=== PATIENT | female | born 1980 | race Caucasian/White ===

== ENCOUNTER 2019-01-20 00:40 | Emergency (ER) | payer BC, MEDICAID ==
[2019-01-20] MEDS ORDERED: Sodium Chloride 0.9% 1,000 ML IV SCH (02:15)
[2019-01-20] MEDS ORDERED: Acetaminophen 325 MG Tab PO ONE (02:16)
[2019-01-20] MEDS ORDERED: cefTRIAXone 1 GM in Sodium Chloride 0.9% 50 ML IV ONE ×2 (02:16→16:21)
--- NOTE | 2019-01-20 02:22 | EDM.PDOC ---
ED HPI GENERAL MEDICAL PROBLEM - General Chief Complaint: Fever Stated Complaint: FEVER,CHILLS,BODY ACHES Time Seen by Provider: 01/20/19 02:17 Source of Information: Reports: Patient History Limitations: Reports: No Limitations - History of Present Illness INITIAL COMMENTS - FREE TEXT/NARRATIVE: pt delivered 6 days ago. She had no complications . She did not end up with stitches, She was doing well and now she has a fever and she hs increased lower abdomanal pain. Onset: Today, Gradual, Other ( last 36 hours pt has had increased pain. ) Duration: Hour(s): Location: Reports: Abdomen, Other ( vag discharge is foul. 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: - Past Surgical History GI Surgical History: Reports: Cholecystectomy Social & Family History - Tobacco Use Smoking Status *Q: Never Smoker - Recreational Drug Use Recreational Drug Use: No ED ROS GENERAL - Review of Systems Review Of Systems: See Below Constitutional: Reports: Fever, Chills, Malaise HEENT: Reports: No Symptoms Respiratory: Reports: No Symptoms Cardiovascular: Reports: No Symptoms Endocrine: Reports: No Symptoms GI/Abdominal: Reports: Abdominal Pain : Reports: No Symptoms Musculoskeletal: Reports: No Symptoms Skin: Reports: No Symptoms Neurological: Reports: No Symptoms ED EXAM, SEPSIS - Physical Exam Exam: See Below Text/Narrative:: pt arrived with increased lower abdomanal pain. She has no dysuria. Exam Limited By: No Limitations General Appearance: Alert, Moderate Distress, Severe Distress Ears: Normal TMs Nose: Normal Inspection Throat/Mouth: Normal Inspection Head: Atraumatic Neck: Normal Inspection Respiratory/Chest: No Respiratory Distress Cardiovascular: Regular Rate, Rhythm GI/Abdominal Exam: Tender, Other (pt has tenderness in the lower abdoman. ) (Female) Exam: Deferred, Other (pelvic exam was done which shos alot of tenderness when the cervix is moved. The discharge is bloody but not particulaly foul. ) Rectal (Female) Exam: Deferred Back: Normal Inspection Extremities: Normal Inspection Neurological: Alert, Oriented, Normal Cognition Psychiatric: Normal Affect Course - Vital Signs Last Recorded V/S: Last Vital Signs Temp 37.7 C 01/20/19 01:38 Pulse 110 H 01/20/19 01:38 Resp 16 01/20/19 01:38 BP 154/84 H 01/20/19 01:42 Pulse Ox 96 01/20/19 01:38 - Orders/Labs/Meds Orders: Active Orders 24 hr Category Date Time Status CULTURE GENITAL [RM] Stat Lab 01/20/19 02:18 Ordered Sodium Chloride 0.9% [Normal Saline] 1,000 ml Med 01/20/19 02:15 Active IV ASDIRECTED cefTRIAXone [Rocephin] 1 gm Med 01/20/19 02:16 Active Sodium Chloride 0.9% [Normal Saline] 50 ml IV ONETIME Medication Orders Sodium Chloride (Normal Saline) 1,000 mls @ 999 mls/hr IV ASDIRECTED KASSIDY Ceftriaxone Sodium 1 gm/ (Sodium Chloride) 50 mls @ 100 mls/hr IV ONETIME ONE Stop: 01/20/19 02:45 Labs: Laboratory Tests 01/20/19 01/20/19 01/20/19 Range/Units 01:40 01:40 02:00 WBC 13.2 H (4.5-11.0) K/uL RBC 4.29 (3.30-5.50) M/uL Hgb 11.7 L (12.0-15.0) g/dL Hct 35.7 L (36.0-48.0) % MCV 83 (80-98) fL MCH 27 (27-31) pg MCHC 33 (32-36) % Plt Count 245 (150-400) K/uL Neut % (Auto) 85 H (36-66) % Lymph % (Auto) 8 L (24-44) % Borden % (Auto) 6 (2-6) % Eos % (Auto) 1 L (2-4) % Baso % (Auto) 0 (0-1) % Sodium 140 (140-148) mmol/L Potassium 4.0 (3.6-5.2) mmol/L Chloride 105 (100-108) mmol/L Carbon Dioxide 23 (21-32) mmol/L Anion Gap 12.2 (5.0-14.0) mmol/L BUN 14 (7-18) mg/dL Creatinine 0.9 (0.6-1.0) mg/dL Est Cr Clr Drug Dosing 76.26 mL/min Estimated GFR (MDRD) > 60 (>60) Glucose 117 H (74-106) mg/dL Calcium 8.8 (8.5-10.1) mg/dL Total Bilirubin 0.5 (0.2-1.0) mg/dL AST 19 (15-37) U/L ALT 34 (12-78) U/L Alkaline Phosphatase 109 (46-116) U/L Total Protein 6.8 (6.4-8.2) g/dL Albumin 2.7 L (3.4-5.0) g/dL Globulin 4.1 H (2.3-3.5) g/dL Albumin/Globulin Ratio 0.7 L (1.2-2.2) Urine Color Yellow (YELLOW) Urine Appearance Cloudy A (CLEAR) Urine pH 6.0 (5.0-8.0) Ur Specific Solen 1.020 (1.008-1.030) Urine Protein 30 H (NEGATIVE) mg/dL Urine Glucose (UA) Normal (NEGATIVE) mg/dL Urine Ketones Negative (NEGATIVE) mg/dL Urine Occult Blood Large H (NEGATIVE) Urine Nitrite Negative (NEGATIVE) Urine Bilirubin Negative (NEGATIVE) Urine Urobilinogen 0.2 (0.2-1.0) EU/dL Ur Leukocyte Esterase Small H (NEGATIVE) Urine RBC Packed H (0-5) Urine WBC 5-10 H (0-5) Ur Epithelial Cells Few Amorphous Sediment Not seen Urine Bacteria Few Urine Mucus Few Meds: Medications Generic Name Dose Route Start Last Admin Trade Name Freq PRN Reason Stop Dose Admin Sodium Chloride 1,000 mls @ 999 mls/hr 01/20/19 02:15 Normal Saline IV ASDIRECTED KASSIDY Ceftriaxone Sodium 1 gm/ 50 mls @ 100 mls/hr 01/20/19 02:16 Sodium Chloride IV 01/20/19 02:45 ONETIME ONE Discontinued Medications Generic Name Dose Route Start Last Admin Trade Name Freq PRN Reason Stop Dose Admin Acetaminophen 650 mg 01/20/19 02:16 Tylenol PO 01/20/19 02:17 NOW ONE - Re-Assessments/Exams Free Text/Narrative Re-Assessment/Exam: 01/20/19 02:26 pt has a neg looking urine. Her wbc is mildly elevated. Rocephen 1 gm was given to the pt and she will return tomorrow for rocehen. Departure - Departure Time of Disposition: : Disposition: Home, Self-Care 01 Condition: Fair Clinical Impression: Pelvic infection - Discharge Information Referrals: PCP,None [Primary Care Provider] - Forms: ED Department Discharge Care Plan Goals: rtc tomorrow for iv rocephen, start keflex 500mg tid tomorrow. tylenol and motrin for fever. - My Orders Last 24 Hours: My Active Orders 01/20/19 02:15 Sodium Chloride 0.9% [Normal Saline] 1,000 ml IV ASDIRECTED 01/20/19 02:16 cefTRIAXone [Rocephin] 1 gm Sodium Chloride 0.9% [Normal Saline] 50 ml IV ONETIME 01/20/19 02:18 CULTURE GENITAL [RM] Stat - Assessment/Plan Last 24 Hours: My Active Orders 01/20/19 02:15 Sodium Chloride 0.9% [Normal Saline] 1,000 ml IV ASDIRECTED 01/20/19 02:16 cefTRIAXone [Rocephin] 1 gm Sodium Chloride 0.9% [Normal Saline] 50 ml IV ONETIME 01/20/19 02:18 CULTURE GENITAL [RM] Stat
== END 2019-01-20 04:30 | disposition home or self-care (01) ==
LOC: JP.ED 00:40 → JP.IVTHER 00:44 → JP.ED 01:00 → EDSTATUS 08:12 → JP.IVTHER 15:22 → JP.ED 16:15
DX: O86.00 Infection of obstetric surgical wound, unspecified (principal); Z90.49 Acquired absence of other specified parts of digestive tract; Z88.0 Allergy status to penicillin
CPT/HCPCS: 36415; 80053; 81001; 85025; 87070; 99283; A9270; J0696; J7030; J7050; 96361; 96365

== ENCOUNTER 2023-05-31 09:56 | Observation (INO) | payer BC, MEDICAID ==
[2023-05-31] MEDS ORDERED: Sodium Chloride 0.9% 1,000 ML IV SCH ×2 (10:30→12:30)
[2023-05-31 10:43] LABS: APPEARANCE,URINE CLOUDY (CLEAR); BILIRUBIN,URINE NEGATIVE (NEGATIVE); COLOR,URINE YELLOW (YELLOW); GLUCOSE,URINE NEGATIVE (NEGATIVE); KETONES,URINE NEGATIVE (NEGATIVE); LEUKOCYTE ESTERASE,URINE NEGATIVE (NEGATIVE); NITRITE,URINE NEGATIVE (NEGATIVE); OCCULT BLOOD,URINE NEGATIVE (NEGATIVE); PROTEIN,URINE TRACE mg/dL (NEGATIVE)
[2023-05-31 10:48] LABS: AMORPHOUS SEDIMENT,URINE NOT SEEN; BACTERIA,URINE MODERATE; EPITHELIAL CELLS,URINE MODERATE; MUCUS,URINE FEW; RBC,URINE 0-5 (0-5); WBC,URINE 0-5 (0-5)
[2023-05-31 10:53] LABS: ALANINE AMINOTRANSFERASE,ALT 20 U/L (12-78); ALBUMIN 3.7 g/dL (3.4-5.0); ALKALINE PHOSPHATASE 52 U/L (46-116); ANION GAP 11.5 mmol/L (5.0-14.0); ASPARTATE AMNIOTRANSFERASE,AST 12 U/L (15-37); BILIRUBIN TOTAL 1.1 mg/dL (0.2-1.0); BLOOD UREA NITROGEN,BUN 12 mg/dL (7-18); CALCIUM 8.4 mg/dL (8.5-10.1); CARBON DIOXIDE,CO2 27 mmol/L (21-32); CHLORIDE,CL 104 mmol/L (100-108); CREATININE 0.8 mg/dL (0.6-1.0); EST CRCL DRUG DOSING (CG) 82.43 mL/min; ESTIMATED GFR 94 mL/min (>60); GLUCOSE RANDOM 113 mg/dL (74-106); POTASSIUM,K 3.5 mmol/L (3.6-5.2); PROTEIN TOTAL,TP 7.5 g/dL (6.4-8.2); SODIUM,NA 139 mmol/L (140-148)
[2023-05-31 11:01] LABS: BASOPHILS ABSOLUTE AUTO 0.03 K/uL (0.00-0.10); BASOPHILS PERCENT AUTO 0.2 % (0.1-1.3); EOSINOPHILS ABSOLUTE AUTO 0.04 K/uL (0.00-0.40); EOSINOPHILS PERCENT AUTO 0.3 % (0.0-5.4); HEMATOCRIT 37.3 % (34.3-46.0); HEMOGLOBIN 12.9 g/dL (11.2-15.5); IMMATURE GRAN ABSOLUTE AUTO 0.07 K/uL (0.00-0.23); IMMATURE GRAN PERCENT AUTO 0.6 % (0.0-0.7); LYMPHOCYTES PERCENT AUTO 10.4 % (11.4-47.7); MEAN CORPUSCULAR HEMOGLOBIN 28.2 pg (31.6-35.5); MEAN CORPUSCULAR HGB CONC 34.6 g/dL (31.6-35.5); MEAN CORPUSCULAR VOLUME 81.4 fL (81.4-99.0); MONOCYTES ABSOLUTE AUTO 0.96 K/uL (0.20-0.90); MONOCYTES PERCENT AUTO 7.7 % (3.3-12.6); NEUTROPHILS ABSOLUTE AUTO 10.14 K/uL (1.0-7.6); NEUTROPHILS PERCENT AUTO 80.8 % (40.0-78.1); PLATELET COUNT,PLT 226 K/uL (130-375); RED BLOOD CELL COUNT 4.58 M/uL (3.77-5.24); WHITE BLOOD CELL COUNT,WBC 12.5 K/uL (3.2-11.0)
[2023-05-31] MEDS ORDERED: Iopamidol 612 MG/ML 100 ML Bottle IV ONE (11:13)
[2023-05-31] MEDS ORDERED: Sodium Chloride 0.9% 80 ML IV SCH (11:15)
[2023-05-31] MEDS ORDERED: Ondansetron 4 MG/2 ML SDV IVPUSH ONE (12:20)
[2023-05-31] MEDS ORDERED: HYDROmorphone 0.5 MG/0.5 ML Syringe IVPUSH ONE (12:21)
[2023-05-31] MEDS ORDERED: Lidocaine 1% with EPINEPHrine 1:100,000 50 ML MDV ONE (12:32)
[2023-05-31] MEDS ORDERED: fentaNYL 250 MCG/5 ML SDV ONE (12:33)
[2023-05-31] MEDS ORDERED: Succinylcholine 200 MG/10 ML MDV ONE (12:34)
[2023-05-31] MEDS ORDERED: Rocuronium 50 MG/5 ML Vial ONE (12:34)
[2023-05-31] MEDS ORDERED: Ondansetron 4 MG/2 ML SDV ONE (12:34)
[2023-05-31] MEDS ORDERED: Dexamethasone 4 MG/ML SDV ONE (12:34)
[2023-05-31] MEDS ORDERED: Neostigmine Methylsulfate 10 MG/10 ML MDV ONE (12:34)
[2023-05-31] MEDS ORDERED: Glycopyrrolate 0.2 MG/ML 5 ML MDV ONE (12:34)
[2023-05-31] MEDS ORDERED: Propofol 200 MG/20 ML SDV ONE (12:34)
[2023-05-31] MEDS ORDERED: Bupivacaine 0.5%/EPINEPHrine 1:200,000 50 ML MDV ONE (12:44)
[2023-05-31] MEDS ORDERED: Ropivacaine 44 ML, dexAMETHasone 8 MG, EPINEPHrine 0.4 MG, Sodium Chloride 0.9% 33.6 ML NERVRT SCH ×4 (13:00)
[2023-05-31] MEDS ORDERED: Zolpidem 5 MG Tab PO PRN (13:18)
[2023-05-31] MEDS ORDERED: hydrOXYzine HCL 100 MG/2 ML SDV IM PRN (13:18)
[2023-05-31] MEDS ORDERED: Docusate Sodium 100 MG Cap PO PRN (13:18)
[2023-05-31] MEDS ORDERED: Benzocaine/Cetylpyridinium/Menthol Lozenge MUCMEM PRN (13:18)
[2023-05-31] MEDS ORDERED: Ertapenem 1 GM in Sodium Chloride 0.9% 100 ML IV ONE (13:30)
[2023-05-31] MEDS ORDERED: Sugammadex Sodium 200 MG/2 ML VIAL ONE (13:48)
[2023-05-31] MEDS: Acetaminophen/HYDROcodone 325-5 MG Tab PO PRN (20:07)
[2023-06-01] MEDS: Acetaminophen/HYDROcodone 325-5 MG Tab PO PRN ×2 (05:22→10:31)
[2023-06-01 06:01] LABS: BASOPHILS PERCENT AUTO 0.1 % (0.1-1.3); HEMATOCRIT 34.6 % (34.3-46.0); HEMOGLOBIN 11.6 g/dL (11.2-15.5); IMMATURE GRAN ABSOLUTE AUTO 0.09 K/uL (0.00-0.23); IMMATURE GRAN PERCENT AUTO 0.7 % (0.0-0.7); LYMPHOCYTES ABSOLUTE AUTO 0.98 K/uL (0.8-3.3); LYMPHOCYTES PERCENT AUTO 7.9 % (11.4-47.7); MEAN CORPUSCULAR HGB CONC 33.5 g/dL (31.6-35.5); MEAN CORPUSCULAR VOLUME 83.4 fL (81.4-99.0); MONOCYTES ABSOLUTE AUTO 0.56 K/uL (0.20-0.90); MONOCYTES PERCENT AUTO 4.5 % (3.3-12.6); NEUTROPHILS ABSOLUTE AUTO 10.74 K/uL (1.0-7.6); NEUTROPHILS PERCENT AUTO 86.8 % (40.0-78.1); PLATELET COUNT,PLT 231 K/uL (130-375); RED BLOOD CELL COUNT 4.15 M/uL (3.77-5.24); WHITE BLOOD CELL COUNT,WBC 12.4 K/uL (3.2-11.0)
[2023-06-01 06:02] LABS: BASOPHILS ABSOLUTE AUTO 0.01 K/uL (0.00-0.10)
[2023-06-01 06:19] LABS: ANION GAP 7.7 mmol/L (5.0-14.0); CALCIUM 8.1 mg/dL (8.5-10.1); CREATININE 0.7 mg/dL (0.6-1.0); EST CRCL DRUG DOSING (CG) 94.21 mL/min; POTASSIUM,K 3.9 mmol/L (3.6-5.2)
== END 2023-06-01 10:47 | disposition home or self-care (01) ==
LOC: JP.ED 09:56 → JP.SDS 12:23 → JP.MS 13:18
PROVIDERS: ADMIT Surgery; ATTEND Surgery
DX: K35.80 Unspecified acute appendicitis (principal); Z90.49 Acquired absence of other specified parts of digestive tract; Z79.899 Other long term (current) drug therapy; Z88.0 Allergy status to penicillin
CPT/HCPCS: 36415; 44970; 74177; 80048; 80053; 81001; 85025; 86140; 87635; 88304; 96361; 96365; 96375; 99284; 99285; A9270; G0378; J0171; J0330; J1100; J1170; J1335; J2405; J2704; J2710; J2795; J3010; J3490; J7030; Q9967; U0002

== ENCOUNTER 2024-07-11 15:56 | Emergency (ER) | payer BC, MEDICAID ==
[2024-07-11 17:10] LABS: BASOPHILS ABSOLUTE AUTO 0.03 K/uL (0.00-0.10); BASOPHILS PERCENT AUTO 0.4 % (0.1-1.3); EOSINOPHILS ABSOLUTE AUTO 0.19 K/uL (0.00-0.40); EOSINOPHILS PERCENT AUTO 2.4 % (0.0-5.4); HEMATOCRIT 35.8 % (34.3-46.0); HEMOGLOBIN 12.6 g/dL (11.2-15.5); IMMATURE GRAN PERCENT AUTO 0.3 % (0.0-0.7); LYMPHOCYTES ABSOLUTE AUTO 1.72 K/uL (0.8-3.3); LYMPHOCYTES PERCENT AUTO 21.7 % (11.4-47.7); MEAN CORPUSCULAR HEMOGLOBIN 28.6 pg (31.6-35.5); MEAN CORPUSCULAR HGB CONC 35.2 g/dL (31.6-35.5); MEAN CORPUSCULAR VOLUME 81.2 fL (81.4-99.0); MONOCYTES ABSOLUTE AUTO 0.57 K/uL (0.20-0.90); MONOCYTES PERCENT AUTO 7.2 % (3.3-12.6); NEUTROPHILS ABSOLUTE AUTO 5.38 K/uL (1.0-7.6); PLATELET COUNT,PLT 216 K/uL (130-375); RED BLOOD CELL COUNT 4.41 M/uL (3.77-5.24); WHITE BLOOD CELL COUNT,WBC 7.9 K/uL (3.2-11.0)
[2024-07-11 17:11] LABS: IMMATURE GRAN ABSOLUTE AUTO 0.02 K/uL (0.00-0.23)
[2024-07-11 17:33] LABS: ANION GAP 9.5 mmol/L (5.0-14.0); BLOOD UREA NITROGEN,BUN 19 mg/dL (7-18); CALCIUM 9.1 mg/dL (8.5-10.1); CARBON DIOXIDE,CO2 28 mmol/L (21-32); CHLORIDE,CL 105 mmol/L (100-108); CREATININE 0.9 mg/dL (0.6-1.0); EST CRCL DRUG DOSING (CG) 71.78 mL/min; ESTIMATED GFR 81 mL/min (>60); GLUCOSE RANDOM 97 mg/dL (74-106); POTASSIUM,K 3.7 mmol/L (3.6-5.2); SODIUM,NA 142 mmol/L (140-148); TROPONIN I HIGH SENSITIVITY < 4.0 pg/mL (<=60.3)
[2024-07-11] MEDS: Ketorolac 30 MG/ML SDV IM ONE (19:32)
[2024-07-11] MEDS: Cyclobenzaprine 10 MG Tab PO ONE (19:32)
== END 2024-07-11 21:02 | disposition home or self-care (01) ==
LOC: JP.ED 15:56
DX: S29.012A Strain of muscle and tendon of back wall of thorax, initial encounter (principal); Z88.0 Allergy status to penicillin; Z90.49 Acquired absence of other specified parts of digestive tract; X58.XXXA Exposure to other specified factors, initial encounter
CPT/HCPCS: 36415; 80048; 84484; 85025; 93005; 96372; 99285; A9270-GY; J1885